=== PATIENT | female | born 1985 | race Caucasian/White ===

== ENCOUNTER → 2019-06-19 11:45 | Outpatient (CLI) | payer OTHER, SELFPAY ==
[2019-06-20 10:36] LABS: Strep Grp B PCR POS for Grp B Strep
== END ==
PROVIDERS: Visit Provider Obstetrics & Gynecology
DX: Z34.03 Encounter for supervision of normal first pregnancy, third trimester (principal); Z3A.35 35 weeks gestation of pregnancy
CPT/HCPCS: 87653

== ENCOUNTER 2019-07-14 09:28 | Inpatient (IN) | payer OTHER, SELFPAY ==
[2019-07-14] MEDS: PENICILLIN G POTASSIUM 5,000,000 UNIT in DEXTROSE 5% IN WATER 250 ML IV (11:42)
[2019-07-14] MEDS: LACTATED RINGERS 1,000 ML 100 ML IV ×2 (11:42→21:01)
[2019-07-14 12:07] LABS: Add Manual Diff / Slide Review NO; Basophils Absolute Auto 0 /uL (0-100); Basophils Percent Auto 0.4 % (0-2); Eosinophils Absolute Auto 0 /uL (0-450); Eosinophils Percent Auto 0.4 % (2-4); Hematocrit 33.1 % (36-46); Hemoglobin 11.2 g/dL (12.0-16.0); Lymphocytes Absolute Auto 1000 /uL (1100-4500); Lymphocytes Percent Auto 11.7 % (25-40); Mean Corpuscular HGB Conc 33.9 % (30-36); Mean Corpuscular Hemoglobin 27.2 PG (26-34); Mean Corpuscular Volume 80.4 fL (80-100); Monocytes Absolute Auto 500 /uL (0-900); Monocytes Percent Auto 6.2 % (3-14); Neutrophils Absolute Auto 7000 /uL (1500-7000); Neutrophils Percent Auto 81.3 % (50-75); Platelet Count 201 X10^3/uL (150-400); Red Blood Cell Count 4.12 X10^6/uL (4.0-5.2); Red Cell Distribution Width 13.6 % (11.6-14.8); White Blood Cell Count 8.6 X10^3/uL (4.5-11.0)
--- NOTE | 2019-07-14 13:37 | P.HPOB_ITS ---
OB HPI Date/Time Date of admission: 07/14/19 Date Patient Seen: 07/14/19 Time Patient Seen: 13:37 History of Present Condition Chief complaint: : 1 Para: 0 Estimated Date of Delivery: 07/17/19 Estimated Gestational Age (weeks): 39 Narrative: Dorina Nunez is a 33 year old @39+4 with an IVF presenting after PROM at 0630 for clear fluid, confirmed on admission with amnisure. The patient reports +FM, +LOF, -VB, rare contractions, and no other complaints obstetrical or otherwise. The patient has had a complicated only by late transfer of care [place], at 31+6. 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 The patient's history is otherwise significant only for well controlled asthma, with rare use of a rescue inhaler. History of Present care: good care Dating criteria: other (IVF) Ultrasounds: normal 1st trimester US and normal mid trimester US Medical complications: respiratory (Asthma, well controlled as above) Preadmission Labs Blood type: A (+) positive -: Antibody screen: negative, Cystic fibrosis screen: negative, GBS status: positive, HBsAG: negative, HIV: negative and RPR/VDLR: negative -: Chlamydia screen: not detected and Gonorrhea screen: not detected -: Rubella: immune and Varicella: not immune HCAB: negative Urine: negative 1 hr GTT: 68 Evaluation Evaluation Baseline heart rate: 135 Variability: Average (6-10) monitor accelerations: Present monitor decelerations: Early Contraction Frequency (minutes): 7 Uterine Contraction Intensity: Mild Category of Tracing: I Cervical dilation (cm): 1 Cervical effacement (%): 75 station: -1 Laboratory results: Laboratory Tests 07/14/19 07/14/19 10:45 10:45 WBC 8.6 RBC 4.12 Hgb 11.2 L Hct 33.1 L MCV 80.4 MCH 27.2 MCHC 33.9 RDW 13.6 Plt Count 201 Neut % (Auto) 81.3 H Lymph % (Auto) 11.7 L Garza % (Auto) 6.2 Eos % (Auto) 0.4 L Baso % (Auto) 0.4 Neut # (Auto) 7000 Lymph # (Auto) 1000 L [place] # (Auto) 500 Eos # (Auto) 0 Baso # (Auto) 0 Blood Type A Positive Antibody Screen Negative [facility] Medical History (Updated 07/14/19 @ 14:19 by Esperanza Cuevas MD) Anxiety (Acute) Meds Home Medications and Allergies Home Medications Medication Instructions Recorded Confirmed Type valacyclovir 500 mg tablet 500 mg PO BID #60 tab 06/19/19 06/19/19 Rx Review of Systems Constitutional Constitutional: Reports system reviewed and no additional complaints, except as documented Cardiovascular Cardiovascular: Reports system reviewed; no additional complaints, except as documented Respiratory Respiratory: Reports system reviewed and no additional complaints, except as documented Gastrointestinal Gastrointestinal: Reports system reviewed and no additional complaints, except as documented Genitourinary Genitourinary: Reports as per HPI Musculoskeletal Musculoskeletal: Reports system reviewed; no additional complaints, except as documented Neurologic Neurologic: Reports system reviewed and no additional complaints, except as documented Exam Vital Signs (past 8 hours): 124/70, 113, 36.9 C Const General: cooperative, healthy appearing and comfortable Resp Effort & Inspection: normal respiratory effort Auscultation: clear to auscultation bilaterally Cardio Rate: regular rate Rhythm: regular rhythm GI Palpation: No tender Manual OB Exam: dilated 1, effaced 75% and station -1 Presentation: vertex Estimated Weight (lbs): 7 Amniotic Fluid: clear Other: No signs of genital herpes lesions Skin General: no rashes or lesions noted Extrem Right lower extremity: normal to inspection Left lower extremity: normal to inspection Objective Labs Result Diagrams: 07/14/19 10:45 Labs: Laboratory Results - last 24 hr 07/14/19 07/14/19 10:45 10:45 WBC 8.6 RBC 4.12 Hgb 11.2 L Hct 33.1 L MCV 80.4 MCH 27.2 MCHC 33.9 RDW 13.6 Plt Count 201 Neut % (Auto) 81.3 H Lymph % (Auto) 11.7 L Garza % (Auto) 6.2 Eos % (Auto) 0.4 L Baso % (Auto) 0.4 Neut # (Auto) 7000 Lymph # (Auto) 1000 L Garza # (Auto) 500 Eos # (Auto) 0 Baso # (Auto) 0 Blood Type A Positive Antibody Screen Negative Assessment and Plan Assessment and Plan Assessment and Plan narrative: This patient is a 33yo @39+4 a/w PROM for clear fluid, now with irregular and largely asymptomatic contractions despite ambulation. The patient would like to avoid interventions where possible, but we discussed that especially with GBS, augmenting labor with pitocin to avoid prolonged rupture of membranes is a necessary next step, and the patient vocalized understanding. The patient did begin penicillin therapy on arrival, and has reassuring status. The patient would like to avoid pain medication, and will use the birthing ball and continuous wireless monitors. - clear liquid diet - vitals qhr and continuous EFM and toco - Pitocin per protocol - Continue pencillin per protocol
[2019-07-14] MEDS: LACTATED RINGERS 500 ML 21 ML IV (14:17)
[2019-07-14] MEDS: OXYTOCIN PREMIX 30 UNIT/500 ML PLAST..BAG IV (14:18)
[2019-07-14] MEDS: PENICILLIN G POTASSIUM 3,000,000 UNIT/50 ML FROZ.PIGGY 100 UNIT IV ×2 (15:39→20:59)
[2019-07-14 15:45] VITALS: BP 124/70
--- NOTE | 2019-07-14 17:07 | PM.OBPNLAB ---
Date/Time Date Patient Seen: 07/14/19 Time Patient Seen: 17:07 Pain Control Pain control: tolerating well Comments: 128/68, HR 92, 36.1 C Pelvic Exam Amniotic membrane status: Ruptured Comments: Cat 1 EFM, increasing pitocin per protocol, patient mildly crampy- SVE deferred given rupture Contractions Contractions on admission: irregular Pitocin rate (mU/min): 10 Contraction frequency (min): 3 Contraction duration (min): 1 Contraction pattern: Regular Contraction intensity: Moderate Status status: Category l Heart Rate Baseline: 130 Monitor Accelerations: Present Monitor Decelerations: Absent Monitor Variability: Moderate Assessment and Plan Assessment: induction ongoing Plan: continuous present management Comments: Patient tolerating induction for PROM well, status reassuring with cat 1 EFM. Patient in midst of pitocin protocol- will assess cervix when clinically indicated to minimize exams.
--- NOTE | 2019-07-14 20:30 | PM.OBPNLAB ---
Date/Time Date Patient Seen: 07/14/19 Time Patient Seen: 20:30 Pain Control Pain control: epidural Comments: Patient for epidural now. Pelvic Exam Dilation (cm): 6 Effacement (%): 100 station: -1 Amniotic membrane status: Ruptured Contractions Contractions on admission: irregular Monitor mode: External Pitocin rate (mU/min): 14 Contraction frequency (min): 2 Contraction duration (min): 1 Contraction pattern: Regular Contraction intensity: Moderate Status status: Category l Heart Rate Baseline: 135 Monitor Accelerations: Present Monitor Decelerations: Absent Monitor Variability: Moderate Comments: Monitoring intermittently difficult due to patient movement and positioning during labor. Assessment and Plan Assessment: active labor and induction ongoing Plan: continuous present management Comments: This patient is a 33yo @39+4 a/w PROM, now progressing with pitocin augmentation with reassuring status. Patient desires epidural, which is being expidited. - Continue pitocin, PCN per protocol - continuous EFM
--- NOTE | 2019-07-14 22:54 | PM.OBPRVD ---
 Events: Labor Induction Labor & Delivery Delivery date: 07/14/19 Intrapartal events: Acceleration and Deceleration Cervical ripening method: none Induction method: per pitocin protocol Delivery augmentation: pitocin Delivery monitor: external FHT Route of delivery: L&D Laceration Description: Perineal - 2nd Degree and Labial Delivery repair: vicryl Estimated blood loss (mL): 250 Anesthesia type: Epidural Narrative: This patient is a 33yo delivered at 39+4 after presenting with PROM and being induced with pitocin. She was GBS+ and received penicillin per protocol from arrival. She progressed quickly through active labor and the second stage, and was delivered of a baby girl from on all fours, apgars 9+9, weight 7#7. The head and shoulders delivered with ease. A right labial laceration and a small 2nd degree perineal laceration were repaired with 3-0 vicryl in an interrupted fashion. Baby Dina: Infant gender: Female Presentation: vertex Placenta delivery description: Spontaneous cord vessel description: Nuchal Cord (Loose nuchal cord x1, easily reduced.) score (1 min): 9 score (5 min): 9 Plan for aftercare: Patient counselled on perineal care, for routine follow up.
[2019-07-15] MEDS: IBUPROFEN 600 MG TABLET PO ×3 (09:27→21:27)
[2019-07-15] MEDS: DOCUSATE 100 MG CAPSULE PO (09:28)
[2019-07-15] MEDS: ACETAMINOPHEN 325 MG TABLET 650 MG PO ×2 (10:43→16:24)
--- NOTE | 2019-07-15 10:58 | PM.OBPN.1 ---
Subjective - OB Subjective Patient comments: no complaints, pain well controlled, tolerating diet and flatus present baby status: doing well feeding status: exclusively breast feeding Date Patient Seen: 07/15/19 Time Patient Seen: 11:00 Interval history: Patient reports feeling well this AM with no complaints, moderate lochia, +flatus, +voiding, ambulating without issue, tolerating PO intake. Exam Vital Signs (past 8 hours): 116/73, HR 91, 98.4 F Const General: healthy appearing and comfortable Orientation: alert, awake and oriented x3 Resp Effort & Inspection: normal respiratory effort Auscultation: clear to auscultation bilaterally Cardio Rate: regular rate Rhythm: regular rhythm GI Palpation: soft and No tender Other: Fundus firm, below u Skin General: no rashes or lesions noted Objective Labs Result Diagrams: 07/14/19 10:45 Labs: Laboratory Results - last 24 hr 07/14/19 07/14/19 10:45 10:45 WBC 8.6 RBC 4.12 Hgb 11.2 L Hct 33.1 L MCV 80.4 MCH 27.2 MCHC 33.9 RDW 13.6 Plt Count 201 Neut % (Auto) 81.3 H Lymph % (Auto) 11.7 L [place] % (Auto) 6.2 Eos % (Auto) 0.4 L Baso % (Auto) 0.4 Neut # (Auto) 7000 Lymph # (Auto) 1000 L [place] # (Auto) 500 Eos # (Auto) 0 Baso # (Auto) 0 Blood Type A Positive Antibody Screen Negative Assessment & Plan Plan day: 1 plan OB: routine care Comments: Patient PPD#1 s/p late evening delivery yesterday, recovering well. Given timing of delivery shortly before midnight, patient to remain in house until tomorrow AM. Time Spent With Patient Time: Total time spent is greater than 50% in coordination of care (as documented) at patient's floor/unit and/or counseling patient: Time with patient: less than 15 minutes
[2019-07-15] MEDS: valACYclovir 500 MG TABLET PO (21:28)
[2019-07-16] MEDS: IBUPROFEN 600 MG TABLET PO (04:37)
[2019-07-16 07:15] LABS: Hematocrit 25.9 % (36-46); Hemoglobin 8.7 g/dL (12.0-16.0)
--- NOTE | 2019-07-16 08:10 | PM.OBPN.1 ---
Subjective - OB Subjective Patient comments: no complaints and pain well controlled baby status: doing well and nursing well feeding status: exclusively breast feeding Date Patient Seen: 07/16/19 Time Patient Seen: 08:00 Interval history: Patient reports feeling well today, voiding, ambulating, tolerating p.o., good pain control, mild lochia. No other complaints. Exam Vital Signs (past 8 hours): 118/77, heart rate 82, 96.9 after Const General: cooperative, healthy appearing and comfortable Resp Effort & Inspection: normal respiratory effort Auscultation: clear to auscultation bilaterally Cardio Rate: regular rate Rhythm: regular rhythm GI Palpation: soft and No tender Other: Fundus firm, well below U External Female Exam: external appearance normal Other: Laceration repair is intact, no erythema, no induration, no drainage. Skin General: no rashes or lesions noted Objective Labs Result Diagrams: 07/16/19 06:31 Labs: Laboratory Results - last 24 hr 07/16/19 06:31 Hgb 8.7 L Hct 25.9 L Assessment & Plan Plan day: 2 plan OB: routine care Comments: This patient is day 2 status post uncomplicated vaginal delivery after induction of labor for PROM. The patient is stable for discharge today, we discussed precautions and reasons for return. Patient return to clinic in 4-6 weeks for visit. Time Spent With Patient Time: Total time spent is greater than 50% in coordination of care (as documented) at patient's floor/unit and/or counseling patient: Time with patient: less than 15 minutes
--- NOTE | 2019-07-16 08:34 | P.DS_ITS ---
History of Present Illness History of Present Illness Chief complaint: Labor & Delivery Narrative: Patient reports feeling well this AM with no complaints, moderate lochia, +flatus, +voiding, ambulating without issue, tolerating PO intake. Discharge Providers Provider Date of admission: 07/14/19 09:28 Discharge Date: 07/16/19 Consults: 07/15/19 22:51 Consult to Sales Representative [employer] Routine Comment: Discharge provider: Esperanza Cuevas MD Summary Hospital Course Discharge Diagnosis: Vaginal delivery Hospital Course: This patient is a 33-year-old G1 now P1, who presented with premature rupture of membranes at 39 weeks in the setting of being GBS positive. She was treated with penicillin and given Pitocin, progressed to fully dilated, and delivered a healthy baby girl with ease. There were no intrapartum or complications, patient was discharged on day 2. Status at Discharge Cognitive/behavioral status at discharge: oriented Functional status at discharge: independent ambulation Overall status at discharge: patient is progressing back to baseline Time Spent with Patient Time spent: Less than 30 minutes Exam Vital Signs (past 8 hours): CC exam on day of discharge progress note Objective Labs Result Diagrams: 07/16/19 06:31 Labs: Laboratory Results - last 24 hr 07/16/19 06:31 Hgb 8.7 L Hct 25.9 L Discharge Plan Discharge Plan Patient Disposition: Home Discharge orders & Medications Prescriptions: Continued valacyclovir [Valtrex] 500 mg tablet 500 mg PO BID Qty: 60 RF: 0 Follow up/Referrals: Esperanza Cuevas MD [Physician] - 1 Month (Appointment with on at 11:00am) Diet/Activity/Treatments Diet: Regular Activity: Nothing in the vagina for 6 weeks. Avoid heavy lifting for 6 weeks. Skin/Wound/Dressing Care Report to your healthcare provider any signs of infection, such as:: chills, fever, night sweats, increased pain, unusual drainage and unusual redness Visit Report/Discharge Packet Instructions: DI for Labor and Delivery, Vaginal Stand Alone Forms: Discharge: Care Visit Report Forms: Patient Portal/API, Stroke Signs & Symptoms
[2019-07-16] MEDS: DOCUSATE 100 MG CAPSULE PO (09:34)
[2019-07-16] MEDS: valACYclovir 500 MG TABLET PO (09:34)
[2019-07-16 10:37] VITALS: BP 123/78; PULSE 74; RESP 16; TEMP 36.2
== END 2019-07-16 11:20 | disposition home or self-care (01) | DRG 807 ==
PROVIDERS: Obstetrics & Gynecology; Admitting Provider Obstetrics & Gynecology; Visit Provider Obstetrics & Gynecology
DX: O99.824 Streptococcus B carrier state complicating childbirth (principal); Z37.0 Single live birth; Z3A.39 39 weeks gestation of pregnancy; O42.02 Full-term premature rupture of membranes, onset of labor within 24 hours of rupture; O69.81X0 Labor and delivery complicated by cord around neck, without compression, not applicable or unspecified; O70.0 First degree perineal laceration during delivery; O70.1 Second degree perineal laceration during delivery
CPT/HCPCS: 01967; 36415; 59050; 59410; 85014; 85018; 85025; 86850; 86900; 86901; G0379; J2540; J2590